=== PATIENT | male | born 1995 | race Caucasian/White ===

== ENCOUNTER 2017-11-28 20:19 | Emergency (ER) | payer OTHER ==
[2017-11-28] MEDS: DIPHTH/TET/ACEL PERTUSS (ADULT) 0.5 ML VIAL IM* (21:48)
== END 2017-11-28 22:07 ==
LOC: E/R 22:07
DX: S00.83XA Contusion of other part of head, initial encounter (principal); Y04.0XXA Assault by unarmed brawl or fight, initial encounter; Y92.9 Unspecified place or not applicable; Z23 Encounter for immunization
CPT/HCPCS: 70450; 70486; 90471; 90715; 99284-25